=== PATIENT | female | born 1980 | race Caucasian/White ===

== ENCOUNTER 2020-06-17 15:59 | Emergency (ER) | payer BC, MEDICAID ==
[~2020-06-17] VITALS: Ht 160 cm; Wt 96.2 kg
[2020-06-17 16:42] VITALS: BP 153/80; Ht 160 cm; Wt 96.2 kg
[2020-06-17 17:47] LABS: BASOPHIL % 0.7 % (0.2-1.3)
[2020-06-17 17:48] LABS: PLATELET COUNT 560 x10^3mcL (179-408); RED CELL DISTRIBUTION WIDTH 16.6 % (12.3-17.7)
[2020-06-17 17:58] LABS: rbc morphology (normal/abnorm) NORMAL (NORMAL)
[2020-06-17 18:12] LABS: CALCIUM 9.1 mg/dL (8.5-10.1); CARBON DIOXIDE 22.6 mmol/L (21-32); CHLORIDE SERUM 105 mmol/L (98-107); CREATININE SERUM 0.8 mg/dL (0.6-1.0); GFR1 > 60 mL/min; GLUCOSE SERUM 98 mg/dL (74-106); POTASSIUM SERUM 3.8 mmol/L (3.5-5.1); SODIUM SERUM 139 mmol/L (136-145)
[2020-06-17 18:27] LABS: ALBUMIN 3.4 g/dL (3.4-5.0); ALKALINE PHOSPHATASE 94 U/L (46-116); ALT/SGPT 36 U/L (14-59); AST/SGOT 16 U/L (15-37); BILIRUBIN TOTAL 0.17 mg/dL (0.20-1.00)
[2020-06-17 18:28] LABS: TOTAL PROTEIN, SERUM 8.5 g/dL (6.4-8.2)
== END 2020-06-17 20:02 | disposition admitted as inpatient to this hospital (09) ==
LOC: ED 15:59
PROVIDERS: Emergency Medicine
DX: U07.1 COVID-19 (principal); R07.89 Other chest pain
CPT/HCPCS: 85378